=== PATIENT | female | born 1985 | race Caucasian/White ===

== ENCOUNTER → 2018-12-30 13:29 | Outpatient (CLI) | payer OTHER, SELFPAY ==
[2018-12-30 15:12] LABS: Amphetamine/Metha Screen,Urine Negative ng/mL (<1000); Barbiturates Screen,Urine Negative ng/mL (<200); Benzodiazepines Screen,Urine Negative ng/mL (<200); Cannabinoid Screen,Urine Negative ng/mL (<50); Cocaine Screen,Urine Negative ng/mL (<300); Methadone Screen,Urine Negative ng/mL (<300); Opiate Screen,Urine Negative ng/mL (<300); Phencyclidine Screen,Urine Negative ng/mL (<25)
== END ==
PROVIDERS: Visit Provider Physician Assistant
DX: Z79.899 Other long term (current) drug therapy (principal)
CPT/HCPCS: 80305

== ENCOUNTER → 2019-09-28 17:13 | Outpatient (CLI) | payer OTHER, SELFPAY ==
[2019-09-28 20:36] LABS: Amphetamine/Metha Screen,Urine Positive ng/mL (<1000); Barbiturates Screen,Urine Negative ng/mL (<200); Benzodiazepines Screen,Urine Negative ng/mL (<200); Cannabinoid Screen,Urine Positive ng/mL (<50); Cocaine Screen,Urine Negative ng/mL (<300); Methadone Screen,Urine Negative ng/mL (<300); Opiate Screen,Urine Negative ng/mL (<300); Phencyclidine Screen,Urine Negative ng/mL (<25)
== END ==
PROVIDERS: Visit Provider Nurse Practitioner Family
DX: F41.9 Anxiety disorder, unspecified (principal)
CPT/HCPCS: 80305

== ENCOUNTER 2020-01-13 14:14 | Emergency (ER) | payer OTHER, SELFPAY ==
[2020-01-13 14:22] VITALS: BP 140/92; PULSE 124; RESP 20; TEMP 36.4; O2SAT 98; BMI 38.4
--- NOTE | 2020-01-13 14:50 | HMH.EDUTC ---
[facility] [place] Clinical Impression: Cellulitis of right leg Sinusitis Qualifiers: Sinusitis location: unspecified location Chronicity: acute Recurrence: non-recurrent Qualified Code(s): J01.90 - Acute sinusitis, unspecified Disposition: Home, Self-Care Condition on Discharge: Good Instructions: Cellulitis, DI for Sinusitis Additional Instructions: Drink plenty of fluids. Take tylenol or ibuprofen for pain or fever. Take the medications as directed. Follow up with your regular doctor. GO TO THE ER FOR ANY WORSENING SYMPTOMS Apply warm wet compresses to the affected sites three or four times per day for 15 minutes as tolerated. Take the antibiotics as directed. Follow up with your regular doctor. GO TO THE ER FOR ANY WORSENING SYMPTOMS OR CONCERNS Prescriptions: Sulfamethoxazole/Trimethoprim [Bactrim DS tablet] 1 each PO BID 10 Days #20 tab Transmission Status: Received by [facility] Mupirocin [Bactroban 2% Ointment 22gm tube] 1 applicatio TP TID 7 Days #1 tube Transmission Status: Received by [facility] predniSONE [Deltasone 10mg tablet] 10 mg PO BID 3 Days #6 tab Transmission Status: Received by [facility] cephALEXin [Keflex 500mg Cap] 500 mg PO Q6H 10 Days #40 cap Transmission Status: Received by [facility] Referrals: Barry Galaviz MD [Primary Care Provider] - Time of Disposition: 14:56 Medical Decision Making - Medical Records Medical records reviewed: No: I reviewed the patient's medical records. - David Inquiry Pt receiving controlled substance: No Vital Signs: 01/13/20 14:22 01/13/20 15:12 Temperature 97.6 F 97.6 F Temperature Source Oral Pulse Rate 118 H Pulse Rate [Left Radial] 124 H Respiratory Rate 20 20 Blood Pressure 140/92 H Blood Pressure [Left Arm] 140/92 H Blood Pressure Mean [Left Arm] 108 Blood Pressure Source [Left Arm] Automatic Cuff Blood Pressure Position [Left Arm] Sitting 02 Sat by Pulse Oximetry 98 Oxygen Delivery Method Room Air [facility] [place] - General Stated complaint: sinus and cellulititis on right leg, no accident Time Seen by Provider: 01/13/20 14:50 Mode of Arrival: Ambulatory Source of Information: Patient Limitations: No Limitations Description of Symptoms (Recalled from Triage Doc. by RN): PT C/O CELLULITIS ON BACK OF HER RT LEG AND SINUS CONGESTION. HEENT Symptoms (Recalled from RN notes): Yes (SINUS INFECTION) Resp Symptoms (Recalled from RN notes): No Skin Symptoms (Recalled from RN notes): Yes (CELLULITIS OF LEG) MS Symptoms (Recalled from RN notes): No Functional Status (Recalled from RN notes): N/A - History of Present Illness Provider Complaint: She c/o having an area of cellulitis on the back of her left thigh and having sinus infection symptoms for the past 3 days. She has a history of getting abscesses and cellulitis on her legs and having to take antibiotics to get rid of it. She denies any fever or chills. - Related Data Home Medications Medication Instructions Recorded Confirmed Mupirocin [Bactroban 2% Ointment 1 applicatio TP TID 12/04/19 12/04/19 22gm tube] norgestimate-ethinyl estradioL See Rx Instructions .ROUTE .COMPLEX 12/04/19 12/04/19 [Tri-Previfem Tablet] Previous Rx's Medication Instructions Recorded valacyclovir 1 gram tablet 500 mg PO DAILY PRN #30 tab 02/01/19 citalopram 40 mg tablet 40 mg PO DAILY #90 tab 06/29/19 pantoprazole 40 mg tablet,delayed 40 mg PO DAILY 90 Days #90 tab 06/29/19 release clonazepam 1 mg tablet 1 mg PO BID 30 Days #60 tab 09/28/19 Ondansetron [Zofran 4mg ODT] 4 mg PO Q8HP PRN #20 tab.rapdis 11/26/19 Promethazine HCl [Phenergan 25mg 25 mg PO Q6H PRN #20 tab 11/26/19 tab] hydrOXYzine pamoate [Vistaril 25mg 25 mg PO Q6H PRN #30 cap 11/28/19 capsule] Doxycycline Hyclate [Doxycycline 100 mg PO BID 10 Days #20 cap 12/04/19 100mg Capsule] dexAMET
[2020-01-13 15:12] VITALS: BP 140/92; PULSE 118; RESP 20; TEMP 36.4; O2SAT 98
== END 2020-01-13 15:14 | disposition home or self-care (01) ==
PROVIDERS: Emergency Provider Nurse Practitioner Family; PCP Emergency Medicine
DX: L03.115 Cellulitis of right lower limb (principal); J01.90 Acute sinusitis, unspecified; F41.8 Other specified anxiety disorders; N28.9 Disorder of kidney and ureter, unspecified; Z79.899 Other long term (current) drug therapy
CPT/HCPCS: 99201

== ENCOUNTER 2020-03-15 19:19 | Emergency (ER) | payer OTHER, SELFPAY ==
[2020-03-15 19:38] VITALS: BP 120/70; PULSE 102; RESP 18; TEMP 36.6; O2SAT 97; BMI 38.7
[2020-03-15 19:48] VITALS: BP 120/70; PULSE 102; RESP 18; TEMP 36.6; O2SAT 97; BMI 33.3
--- NOTE | 2020-03-15 20:09 | HMH.EDUTC ---
[facility] [place] Disposition Clinical Impression: Sinusitis Qualifiers: Sinusitis location: unspecified location Chronicity: unspecified Qualified Code(s): J32.9 - Chronic sinusitis, unspecified Disposition: Home, Self-Care Condition on Discharge: Good Instructions: Sinusitis, Sinus Headache, DI for Sinusitis, Amoxicillin and Clavulanic Acid Additional Instructions: Start antibiotic. Sinus infections may take 2-3 days to notice much improvement so be sure to use conservative measures as discussed for symptoms Ok to continue Sudafed Flonase 2 spray in each nostril daily to help with nasal congestion, sinus an ear pressure/inflammation Lots of Fluids Sleep elevated Humidifer/vaporizer Augmentin can cause GI effects. Probiotics may help to prevent these symptoms Follow up with family doctor if no improvement or any worsening of symptoms *Monitor Temp, Over the counter Motrin or Tylenol as directed/as needed Tylenol every 4 hours and Motrin every 6 hours (as long as your family doctor has told you that you can take it) for fever or pain. and straight to ER if unable to lower temp less than 101.0 after medication given *Warm salt water gargles may help to soothe the throat *Throat Lozenges *Warm fluids like tea with honey may help to soothe the throat *Sleep elevated *Humidifier/Vaporizer Your throat swab was sent for culture. Those results are typically sent to your primary care. Be sure to follow up in 2-3 days with your family doctor/primary care physician if no improvement so they can review those result and treat if necessary. If you don?t have a primary care doctor, I recommend you get one but in the mean time, you will have to return to a walk in clinic Follow up IMMEDIATELY for new or worsening symptoms or no Noticeable improvement over the next 48-72 hours. 911 for difficulty breathing or swallowing Prescriptions: Amoxicillin/Potassium Clav [Augmentin 875-125 Tablet] 1 tab PO Q12H 7 Days #14 tab Transmission Status: Pending to [email or web address] Fluticasone Propionate [Flonase 50mcg nasal spray 16gm] 1 spr NS DAILY #1 bottle Transmission Status: Pending to [email or web address] Referrals: Barry Galaviz MD [Primary Care Provider] - As needed Time of Disposition: 20:24 Medical Decision Making - David Inquiry Pt receiving controlled substance: No David was queried for this patient: No Vital Signs: 03/15/20 19:38 03/15/20 19:48 Temperature 97.9 F 97.9 F Temperature Source Oral Oral Pulse Rate [Right Brachial] 102 H 102 H Respiratory Rate 18 18 Blood Pressure [Right Arm] 120/70 120/70 Blood Pressure Mean [Right Arm] 86 86 Blood Pressure Source [Right Arm] Automatic Cuff Automatic Cuff Blood Pressure Position [Right Arm] Sitting Sitting 02 Sat by Pulse Oximetry 97 97 Oxygen Delivery Method Room Air Room Air - Lab Data Lab results reviewed: Yes: I reviewed the patient's lab results. [facility] [place] HPI - General Stated complaint: swollen throat,, drainage Time Seen by Provider: 03/15/20 20:09 Mode of Arrival: Ambulatory Source of Information: Patient Limitations: No Limitations Description of Symptoms (Recalled from Triage Doc. by RN): throat swelling, drainage HEENT Symptoms (Recalled from RN notes): Yes Resp Symptoms (Recalled from RN notes): Yes Skin Symptoms (Recalled from RN notes): No MS Symptoms (Recalled from RN notes): No Functional Status (Recalled from RN notes): none - History of Present Illness Provider Complaint: Patient states that she has been having sore throat, sinus pain and pressure along with headache State that she feels like she may have strep or sinus infection States that she use to get sinus infections alot and feels like it did then States that she hasnt had a fever but feels like even her teeth are getting sore - Related Data Home Medications Medication Instructions Recorded Confirmed Mupirocin [Bactroban 2% Ointment 1 applicatio TP TID 12/04/19 12/04/19 22gm t
[2020-03-15 20:30] VITALS: BP 120/70; PULSE 102; RESP 18; TEMP 36.6; O2SAT 97
== END 2020-03-15 20:35 | disposition home or self-care (01) ==
LOC: ER 19:40 → UTC 19:41
PROVIDERS: Emergency Provider Nurse Practitioner; PCP Emergency Medicine
DX: J32.9 Chronic sinusitis, unspecified (principal); F41.8 Other specified anxiety disorders; N28.9 Disorder of kidney and ureter, unspecified; B00.9 Herpesviral infection, unspecified
CPT/HCPCS: 99201

== ENCOUNTER 2020-03-16 16:01 | Emergency (ER) | payer OTHER, SELFPAY ==
[2020-03-16 16:41] VITALS: BP 134/84; PULSE 81; RESP 20; TEMP 36.7; O2SAT 98; BMI 38.7
--- NOTE | 2020-03-16 16:46 | HMH.EDUTC ---
[facility] – [place] Disposition Clinical Impression: Encounter for laboratory testing for COVID-19 virus Disposition: Home, Self-Care Condition on Discharge: Good Instructions: Preventing the Spread of Coronavirus Discharge Instructions, Migraine -- Adult, DI for Headache Additional Instructions: You was given handout with instructions for COVID 19 make sure that you follow those instruction to help prevent the spread *Call back to the [facility] tomorrow or Friday to see if your test results are back and the result Over the counter Tylenol may help with headache and fever Return if needed Straight to ER if any life threatening symptoms Continue taking antibiotics as prescribed Referrals: PCP,No [Primary Care Provider] - Time of Disposition: 16:58 Medical Decision Making - David Inquiry Pt receiving controlled substance: No David was queried for this patient: No Vital Signs: 03/16/20 16:41 Temperature 98.0 F Temperature Source Oral Pulse Rate [Right Brachial] 81 Respiratory Rate 20 Blood Pressure [Right Arm] 134/84 Blood Pressure Mean [Right Arm] 100 Blood Pressure Source [Right Arm] Automatic Cuff Blood Pressure Position [Right Arm] Sitting 02 Sat by Pulse Oximetry 98 Oxygen Delivery Method Room Air Orders (Tests/Meds): ORDERS Category Date Time Status SARS-CoV-2, ROLAND Stat Lab 03/16/20 16:04 Ordered [facility] [place] HPI - General Stated complaint: covid symptoms Time Seen by Provider: 03/16/20 16:46 Mode of Arrival: Ambulatory Source of Information: Patient Limitations: No Limitations Description of Symptoms (Recalled from Triage Doc. by RN): PATIENT WAS TREATED LAST NIGHT FOR A SINUS INFECTION. RETURNS TO DAY C/O HEADACHE AND REQUESTING TO BE TESTED FOR COVID HEENT Symptoms (Recalled from RN notes): Yes Resp Symptoms (Recalled from RN notes): No Skin Symptoms (Recalled from RN notes): No MS Symptoms (Recalled from RN notes): No Functional Status (Recalled from RN notes): WNL - History of Present Illness Provider Complaint: Patient states that she was seen and treated last night in the [facility] for sinus infection States today she is still having some headache and requesting to get tested for COVID 19 due to having similar symptoms States that they told her she needed to be tested last night but she wouldn't so she came back today - Related Data Home Medications Medication Instructions Recorded Confirmed Mupirocin [Bactroban 2% Ointment 1 applicatio TP TID 12/04/19 12/04/19 22gm tube] norgestimate-ethinyl estradioL See Rx Instructions .ROUTE .COMPLEX 12/04/19 12/04/19 [Tri-Previfem Tablet] Previous Rx's Medication Instructions Recorded valacyclovir 1 gram tablet 500 mg PO DAILY PRN #30 tab 02/01/19 citalopram 40 mg tablet 40 mg PO DAILY #90 tab 06/29/19 pantoprazole 40 mg tablet,delayed 40 mg PO DAILY 90 Days #90 tab 06/29/19 release clonazepam 1 mg tablet 1 mg PO BID 30 Days #60 tab 09/28/19 Ondansetron [Zofran 4mg ODT] 4 mg PO Q8HP PRN #20 tab.rapdis 11/26/19 Promethazine HCl [Phenergan 25mg 25 mg PO Q6H PRN #20 tab 11/26/19 tab] hydrOXYzine pamoate [Vistaril 25mg 25 mg PO Q6H PRN #30 cap 11/28/19 capsule] Doxycycline Hyclate [Doxycycline 100 mg PO BID 10 Days #20 cap 12/04/19 100mg Capsule] dexAMETHasone [Decadron 4mg tablet] 4 mg OP BID 3 Days #6 tab 12/04/19 Mupirocin [Bactroban 2% Ointment 1 applicatio TP TID 7 Days #1 tube 01/13/20 22gm tube] Sulfamethoxazole/Trimethoprim 1 each PO BID 10 Days #20 tab 01/13/20 [Bactrim DS tablet] cephALEXin [Keflex 500mg Cap] 500 mg PO Q6H 10 Days #40 cap 01/13/20 predniSONE [Deltasone 10mg tablet] 10 mg PO BID 3 Days #6 tab 01/13/20 Amoxicillin/Potassium Clav 1 tab PO Q12H 7 Days #14 tab 03/15/20 [Augmentin 875-125 Tablet] Fluticasone Propionate [Flonase 1 spr NS DAILY #1 bottle 03/15/20 50mcg nasal spray 16gm] Allergies Allergy/AdvReac Type Severity Reaction Status Date / Time No Known Allergies Allergy Branden
[2020-03-16 16:58] VITALS: BP 134/84; PULSE 81; RESP 20; TEMP 36.7; O2SAT 98
[2020-03-18 12:55] LABS: Covid-19 Nasal PCR Sendout Lex Not Detected
== END 2020-03-16 17:01 | disposition home or self-care (01) ==
PROVIDERS: Emergency Provider Nurse Practitioner
DX: Z03.818 Encounter for observation for suspected exposure to other biological agents ruled out (principal); R51 Headache; F41.8 Other specified anxiety disorders; Z79.899 Other long term (current) drug therapy
CPT/HCPCS: 99201; U0004

== ENCOUNTER 2020-04-08 20:05 | Emergency (ER) | payer OTHER, SELFPAY ==
[2020-04-08 20:36] VITALS: BP 143/111; PULSE 96; RESP 12; TEMP 36.9; O2SAT 98; BMI 38.7
--- NOTE | 2020-04-08 20:51 | HMH.EDUTC ---
[facility] [place]: Abscess of tonsil Disposition: Home, Self-Care Condition on Discharge: Good Instructions: Sore Throat Additional Instructions: Start antibiotics today be sure to take it as ordered with the full length of time although you should start feeling better in 24-48 hours. Change toothbrush and toothpaste 24-48 hours after starting antibiotics Tylenol or Motrin as needed for fever or pain Encourage fluids, water, Gatorade, Powerade, try cold fluids, popsicles, ice cream will make it feel better You are contagious for 24 hours. Avoid kissing anyone, no eating or drinking after anyone. You are contagious. Follow-up the ER for new or worsening symptoms or no noticeable improvement over the next 24-48 hours. Follow-up with PCP this week. Prescriptions: Azithromycin [Zithromax 250mg tab] 250 mg PO DIRECTED #6 tab Prescription Printed Referrals: PCP,No [Primary Care Provider] - Time of Disposition: 21:00 Medical Decision Making - David Inquiry Pt receiving controlled substance: No Vital Signs: 04/08/20 20:36 Temperature 98.4 F Temperature Source Oral Pulse Rate [Radial] 96 H Respiratory Rate 12 Blood Pressure [Right Arm] 143/111 H Blood Pressure Mean [Right Arm] 121 Blood Pressure Source [Right Arm] Automatic Cuff Blood Pressure Position [Right Arm] Sitting 02 Sat by Pulse Oximetry 98 Oxygen Delivery Method Room Air [facility] [place] - General Chief complaint: [facility] Stated complaint: Poss abscess in throat Time Seen by Provider: 04/08/20 20:51 Mode of Arrival: Ambulatory Source of Information: Patient Limitations: No Limitations Description of Symptoms (Recalled from Triage Doc. by RN): left side of throat hurts, sinus headache. HEENT Symptoms (Recalled from RN notes): Yes Resp Symptoms (Recalled from RN notes): No Skin Symptoms (Recalled from RN notes): No MS Symptoms (Recalled from RN notes): No Functional Status (Recalled from RN notes): wnl - History of Present Illness Provider Complaint: 34 yr old female presents for sore throat and swollen lymp nodes on left. pt states she has hx of abcess and this feel like her normal abccess. - Related Data Home Medications Medication Instructions Recorded Confirmed Mupirocin [Bactroban 2% Ointment 1 applicatio TP TID 12/04/19 12/04/19 22gm tube] norgestimate-ethinyl estradioL See Rx Instructions .ROUTE .COMPLEX 12/04/19 12/04/19 [Tri-Previfem Tablet] Previous Rx's Medication Instructions Recorded valacyclovir 1 gram tablet 500 mg PO DAILY PRN #30 tab 02/01/19 citalopram 40 mg tablet 40 mg PO DAILY #90 tab 06/29/19 pantoprazole 40 mg tablet,delayed 40 mg PO DAILY 90 Days #90 tab 06/29/19 release clonazepam 1 mg tablet 1 mg PO BID 30 Days #60 tab 09/28/19 Ondansetron [Zofran 4mg ODT] 4 mg PO Q8HP PRN #20 tab.rapdis 11/26/19 Promethazine HCl [Phenergan 25mg 25 mg PO Q6H PRN #20 tab 11/26/19 tab] hydrOXYzine pamoate [Vistaril 25mg 25 mg PO Q6H PRN #30 cap 11/28/19 capsule] Doxycycline Hyclate [Doxycycline 100 mg PO BID 10 Days #20 cap 12/04/19 100mg Capsule] dexAMETHasone [Decadron 4mg tablet] 4 mg OP BID 3 Days #6 tab 12/04/19 Mupirocin [Bactroban 2% Ointment 1 applicatio TP TID 7 Days #1 tube 01/13/20 22gm tube] Sulfamethoxazole/Trimethoprim 1 each PO BID 10 Days #20 tab 01/13/20 [Bactrim DS tablet] cephALEXin [Keflex 500mg Cap] 500 mg PO Q6H 10 Days #40 cap 01/13/20 predniSONE [Deltasone 10mg tablet] 10 mg PO BID 3 Days #6 tab 01/13/20 Amoxicillin/Potassium Clav 1 tab PO Q12H 7 Days #14 tab 03/15/20 [Augmentin 875-125 Tablet] Fluticasone Propionate [Flonase 1 spr NS DAILY #1 bottle 03/15/20 50mcg nasal spray 16gm] Azithromycin [Zithromax 250mg 250 mg PO DIRECTED #6 tab 04/08/20 tab] Allergies Allergy/AdvReac Type Severity Reaction Status Date / Time No Known Allergies Allergy Verified 10/26/19 11:18 - Worker's Comp Is this
[2020-04-08 21:14] VITALS: BP 143/111; PULSE 96; RESP 12; TEMP 36.9; O2SAT 98
[2020-04-11 15:43] LABS: UTC Strep Screen (Rapid) Negative (Negative)
== END 2020-04-08 21:16 | disposition home or self-care (01) ==
PROVIDERS: Emergency Provider Nurse Practitioner Family
DX: J36 Peritonsillar abscess (principal); F41.8 Other specified anxiety disorders; N28.9 Disorder of kidney and ureter, unspecified; Z79.899 Other long term (current) drug therapy
CPT/HCPCS: 87880; 96372; 99201; 99202

== ENCOUNTER 2020-04-20 17:22 | Emergency (ER) | payer OTHER, SELFPAY ==
[2020-04-20 17:35] VITALS: BP 121/68; PULSE 102; RESP 17; TEMP 37; O2SAT 98; BMI 38.7
--- NOTE | 2020-04-20 18:04 | HMH.EDUTC ---
[facility] [place] Impression: Amen[place] Disposition: Home, Self-Care Condition on Discharge: Good Instructions: DI for Amenorrhea Additional Instructions: Follow up with your primary care physician. We will call you with the results of the your serum test. Referrals: PCP,No [Primary Care Provider] - Time of Disposition: 18:09 Medical Decision Making - Medical Records Medical records reviewed: No: I reviewed the patient's medical records. - David Inquiry Pt receiving controlled substance: No Vital Signs: 04/20/20 17:35 04/20/20 18:30 Temperature 98.6 F 98.6 F Temperature Source Oral Oral Pulse Rate 102 H Pulse Rate [Radial] 102 H Respiratory Rate 17 17 Blood Pressure 121/68 Blood Pressure [Right Arm] 121/68 Blood Pressure Mean [Right Arm] 85 Blood Pressure Source Automatic Cuff Blood Pressure Source [Right Arm] Automatic Cuff Blood Pressure Position Sitting Blood Pressure Position [Right Arm] Sitting 02 Sat by Pulse Oximetry 98 Oxygen Delivery Method Room Air Room Air - Lab Data Lab Results 04/20/20 17:40: [facility] Negative 04/20/20 17:50: Serum HCG, Qual Negative [facility] [place] - General Stated complaint: Wants to check for Time Seen by Provider: 04/20/20 17:40 Mode of Arrival: Ambulatory Source of Information: Patient Limitations: No Limitations Description of Symptoms (Recalled from Triage Doc. by RN): took two tests today and they were positive. Wants another test HEENT Symptoms (Recalled from RN notes): No Resp Symptoms (Recalled from RN notes): No Skin Symptoms (Recalled from RN notes): No MS Symptoms (Recalled from RN notes): No Functional Status (Recalled from RN notes): wnl - History of Present Illness Provider Complaint: She reports that her period is around 2 weeks late and she has had 2 positive urine test at home. She denies any vaginal bleeding, vaginal discharge, back pain or abdominal pian - Related Data Home Medications Medication Instructions Recorded Confirmed Mupirocin [Bactroban 2% Ointment 1 applicatio TP TID 12/04/19 12/04/19 22gm tube] norgestimate-ethinyl estradioL See Rx Instructions .ROUTE .COMPLEX 12/04/19 12/04/19 [Tri-Previfem Tablet] Previous Rx's Medication Instructions Recorded valacyclovir 1 gram tablet 500 mg PO DAILY PRN #30 tab 02/01/19 citalopram 40 mg tablet 40 mg PO DAILY #90 tab 06/29/19 pantoprazole 40 mg tablet,delayed 40 mg PO DAILY 90 Days #90 tab 06/29/19 release clonazepam 1 mg tablet 1 mg PO BID 30 Days #60 tab 09/28/19 Ondansetron [Zofran 4mg ODT] 4 mg PO Q8HP PRN #20 tab.rapdis 11/26/19 Promethazine HCl [Phenergan 25mg 25 mg PO Q6H PRN #20 tab 11/26/19 tab] hydrOXYzine pamoate [Vistaril 25mg 25 mg PO Q6H PRN #30 cap 11/28/19 capsule] Doxycycline Hyclate [Doxycycline 100 mg PO BID 10 Days #20 cap 12/04/19 100mg Capsule] dexAMETHasone [Decadron 4mg tablet] 4 mg OP BID 3 Days #6 tab 12/04/19 Mupirocin [Bactroban 2% Ointment 1 applicatio TP TID 7 Days #1 tube 01/13/20 22gm tube] Sulfamethoxazole/Trimethoprim 1 each PO BID 10 Days #20 tab 01/13/20 [Bactrim DS tablet] cephALEXin [Keflex 500mg Cap] 500 mg PO Q6H 10 Days #40 cap 01/13/20 predniSONE [Deltasone 10mg tablet] 10 mg PO BID 3 Days #6 tab 01/13/20 Amoxicillin/Potassium Clav 1 tab PO Q12H 7 Days #14 tab 03/15/20 [Augmentin 875-125 Tablet] Fluticasone Propionate [Flonase 1 spr NS DAILY #1 bottle 03/15/20 50mcg nasal spray 16gm] Azithromycin [Zithromax 250mg 250 mg PO DIRECTED #6 tab 04/08/20 tab] Allergies Allergy/AdvReac Type Severity Reaction Status Date / Time No Known Allergies Allergy Verified 10/26/19 11:18 - Worker's Comp Is this a Worker's Comp case?: No [facility] History - Hepatitis A Screen Drug use history?: No High risk sexual behaviors?: No History of sexually transmitted infection?: No Currently employed?: No [employer]
[2020-04-20 18:24] LABS: HCG Qualitative, Serum Negative (Negative)
[2020-04-20 18:30] VITALS: BP 121/68; PULSE 102; RESP 17; TEMP 37; O2SAT 98
[2020-04-20 19:24] LABS: UTC Pregnancy Test, Urine Negative (Negative)
== END 2020-04-20 18:31 | disposition home or self-care (01) ==
PROVIDERS: Emergency Provider Nurse Practitioner Family
DX: N91.2 Amenorrhea, unspecified (principal); F41.8 Other specified anxiety disorders; N28.9 Disorder of kidney and ureter, unspecified; B00.9 Herpesviral infection, unspecified; Z79.899 Other long term (current) drug therapy
CPT/HCPCS: 81025; 84703; 99202

== ENCOUNTER 2020-07-05 20:33 | Emergency (ER) | payer OTHER, SELFPAY ==
[2020-07-05 20:48] VITALS: BP 137/82; PULSE 79; RESP 19; TEMP 36.6; O2SAT 97; BMI 38.7
[2020-07-05 20:53] LABS: Apearance,Urine Clear (Clear); Bilirubin,Urine 1+ (Negative); Blood, Urine Trace (Negative); Color,Urine Red (Yellow); Glucose,Urine (UA) 250 (Negative); Ketones,Urine TRACE (Negative); Protein,Urine 1+ (Negative); Specific Gravity, Urine 1.005 (1.005-1.030); UTC Leukocyte Esterase,Urine 3+ (Negative); UTC Nitrate,Urine Positive (Negative); Urobilinogen,Urine >=8 EU/dl (0.2)
--- NOTE | 2020-07-05 20:55 | HMH.EDUTC ---
[facility] [place] Disposition Clinical Impression: UTI (urinary tract infection) Qualifiers: Urinary tract infection type: site unspecified Hematuria presence: with hematuria Qualified Code(s): N39.0 - Urinary tract infection, site not specified Disposition: Home, Self-Care Condition on Discharge: Good Instructions: Trimethoprim/Sulfamethoxazole (Alternative Therapy), Urinary Tract Infection, DI for Urinary Tract Infection (UTI) Additional Instructions: *Increase fluids. Water not Soda or Tea *Start antibiotic immediately and be sure to take as ordered for the FULL length of time although you should start to see improvement over the next 48 hours *Pyridium as needed Remember this medication will turn your urine Cass. This is normal but it will stain what ever it gets on *You should not use Pyridium for more than 48 hours. If so , follow up with your primary physician to review urine culture and ensure that antibiotic is adequate for infection *Be SURE to follow up anytime for new or worsening symptoms with your family doctor. AND in 48 hours for urine culture results with your family doctor, if you do not have a doctor then you may call back to the [facility] for urine culture results and further treatment. We do recommend that you choose and establish care with a Primary Care Physician. AND follow up with them in 10-14 days to repeat UA to ensure infection is resolved and blood no longer present *Be sure to let your PCP know that we sent urine cultures from the [facility] so they can follow up to ensure that you area the on the correct antibiotic Call your doctor office and make appointment for 48 hours (2 days from today) to follow up and get the results of your urine culture and further treatment Prescriptions: Sulfamethoxazole/Trimethoprim [Bactrim DS tablet] 1 each PO BID 10 Days #20 tab Transmission Status: Received by [facility] Phenazopyridine HCl [Pyridium 200mg Tablet] 200 pow PO TID #6 tab Transmission Status: Received by [facility] Referrals: PCP,No [Primary Care Provider] - As needed Time of Disposition: 21:09 Medical Decision Making - David Inquiry Pt receiving controlled substance: No David was queried for this patient: No Vital Signs: 07/05/20 20:48 07/05/20 21:01 Temperature 97.8 F 97.8 F Temperature Source Oral Oral Pulse Rate 79 Pulse Rate [Radial] 79 Respiratory Rate 19 19 Blood Pressure 137/82 Blood Pressure [Right Arm] 137/82 Blood Pressure Mean [Right Arm] 100 Blood Pressure Source Automatic Cuff Blood Pressure Source [Right Arm] Automatic Cuff Blood Pressure Position Sitting Blood Pressure Position [Right Arm] Sitting 02 Sat by Pulse Oximetry 97 Oxygen Delivery Method Room Air Room Air - Lab Data Lab results reviewed: Yes: I reviewed the patient's lab results. Lab Results 07/05/20 20:43: Urine Color Red, Urine Appearance Clear, Urine pH 5.0, Ur Specific [place] 1.005, Urine Protein 1+, Urine Glucose (UA) 250, Urine Ketones Trace, Urine Blood Trace, Urine Nitrate Positive A, Urine Bilirubin 1+ A, Urine Urobilinogen >=8, Ur Leukocyte Esterase 3+ A Orders (Tests/Meds): ED MEDICATIONS Discontinued Medications Generic Name Dose Route Start Last Admin Trade Name Freq PRN Reason Stop Dose Admin Ceftriaxone Sodium 1 gm 07/05/20 20:56 07/05/20 21:00 Ceftriaxone 1gm Vial IM 07/05/20 20:57 1 gm ONCE ONE Administration Protocol Lidocaine HCl 0 ml 07/05/20 20:56 07/05/20 21:01 Lidocaine 1% 5ml Pf Vial IM 07/05/20 20:57 2.1 ml ONCE ONE Administration Trimethoprim/Sulfamethoxazole 1 each 07/05/20 20:56 07/05/20 21:01 Sulfa/Trimethoprim 1 Tablet PO 07/05/20 20:57 1 each ONCE ONE Administration Protocol ORDERS Category Date Time Status Urine Culture Stat Micro 07/05/20 20:52 Ordered [facility] [place] HPI - General Stated complaint: possible UTI Time Seen by Provider: 07/05/20 20:55 Mode of Arrival: Ambulatory Gris
[2020-07-05 21:01] VITALS: BP 137/82; PULSE 79; RESP 19; TEMP 36.6; O2SAT 97
== END 2020-07-05 21:12 | disposition home or self-care (01) ==
PROVIDERS: Emergency Provider Nurse Practitioner
DX: N30.00 Acute cystitis without hematuria (principal); F41.8 Other specified anxiety disorders; N28.9 Disorder of kidney and ureter, unspecified
CPT/HCPCS: 81003; 87086; 87088; 87186; 96372; 99202

== ENCOUNTER 2020-07-08 16:43 | Emergency (ER) | payer OTHER, SELFPAY ==
[2020-07-08 16:45] VITALS: BP 125/77; PULSE 110; RESP 16; TEMP 36.9; O2SAT 98; BMI 84.6
[2020-07-08 17:24] LABS: Microscopic, Urine URINE MICROSCOPIC (MICROSCOPIC)
[2020-07-08 17:27] LABS: Appearance,Urine CLEAR (Clear); Bilirubin,Urine Negative (Negative); Blood, Urine TRACE-I (Negative); Color,Urine RED (Yellow); Glucose,Urine (UA) TRACE (Negative); Ketones,Urine Negative (Negative); Leukocyte Esterase,Urine TRACE (Negative); Nitrate,Urine POSITIVE (Negative); Protein,Urine 2+ (Negative); Specific Gravity, Urine 1.025 (1.005-1.030); Urobilinogen,Urine >=8.0 EU/dl (0.2)
[2020-07-08 17:38] LABS: Amorphous Sediment,Urine 1+ /lpf; Bacteria,Urine 1+ /lpf; RBC,Urine Occasional #/hpf (0-3)
[2020-07-08 17:45] LABS: Urine Pregnancy, HCG Qual. Negative (Negative)
[2020-07-08 17:54] LABS: Basophils % 0.4 % (0.1-2.0); Eosinophils # 0.1 K/mm3 (0.0-0.4); Eosinophils % 1.3 % (0.1-12.0); Hematocrit 42.6 % (37.0-47.0); Lymphocytes # 2.8 K/mm3 (0.7-4.5); Lymphocytes % 29.8 % (10-50); Mean Corpuscular HGB Conc 32.9 g/dL (31.8-35.4); Mean Corpuscular Hemoglobin 27.9 pg (27.0-31.2); Mean Corpuscular Volume 84.7 fl (81-99); Mean Platelet Volume 8.4 fl (7.4-10.4); Monocytes # 0.4 K/mm3 (0.1-1.0); Monocytes % 4.7 % (1.7-9.3); Neutrophils % 63.7 % (37.0-80.0); Platelet Count 352 K/mm3 (142-424); Red Blood Count 5.03 M/mm3 (4.20-5.40); Red Cell Distribution Width 13.2 % (11.5-17.5); White Blood Count 9.4 K/mm3 (4.8-10.8)
[2020-07-08 18:03] LABS: Alanine Aminotransferase 28 U/L (12-78); Albumin Level 4.1 g/dl (3.5-5.0); Albumin/Globulin Ratio 1.2 (1.1-1.8); Alkaline Phosphatase 82 U/L (38-126); Anion Gap 12.4 mEq/L (5-15); Aspartate Amino Transferase 34 U/L (14-36); Bilirubin,Total 0.4 mg/dl (0.2-1.3); Blood Urea Nitrogen 13 mg/dl (7-17); Calcium 9.8 mg/dl (8.4-10.2); Carbon Dioxide 30 mmol/L (22.0-30.0); Chloride 100 mmol/L (98-107); Creatinine Clearance Estimated 68 mL/min (50-200); Estimated Glomerular Filt Rate 57 ml/min (>60); GFR (African American) 69 ML/MIN (>60); Globulin 3.4 g/dL (1.3-3.2); Glucose 118 mg/dl (74-100); Potassium 4.4 mmoL/L (3.5-5.1); Sodium 138 mmol/L (136-145); Total Protein,Serum 7.5 g/dl (6.3-8.2)
--- NOTE | 2020-07-08 18:04 | PC.NURSE ---
entered pts room to administer medications as ordered per MAR, pt reports her IV feels like it is pinching her, IV flushed, good blood return flushed easily, pt denies pain with flushing IV. Pt requests IV be removed, pt reports she does not want to have another IV started states she doesn't think she needs IVFs or nausea medication.
--- NOTE | 2020-07-08 19:27 | HMH.EDGENADL ---
ED Disposition Clinical Impression: UTI (urinary tract infection) Qualifiers: Urinary tract infection type: acute cystitis Hematuria presence: without hematuria Qualified Code(s): N30.00 - Acute cystitis without hematuria Disposition: Home, Self-Care Condition on Discharge: Good Instructions: DI for Low Back Pain Prescriptions: Ondansetron [Zofran 4mg ODT] 4 mg PO Q6 PRN #9 tab.rapdis PRN Reason: Nausea Prescription Printed Referrals: PCP,No [Primary Care Provider] - - Critical Care Critical Care Time: No Attestation: On 07/08/20, the high probability of a clinically significant, sudden or life threatening deterioration of the following system(s) required my full and direct attention, intervention and personal management. The time I documented below is in addition to time spent performing reported procedures but includes the following listed in this critical care notation. Medical Decision Making - Medical Records Medical records reviewed: Yes: I reviewed the patient's medical records. - David Inquiry Pt receiving controlled substance: No Vital Signs: 07/08/20 16:45 Temperature 98.5 F Temperature Source Oral Pulse Rate [Radial] 110 H Respiratory Rate 16 Blood Pressure [Right Arm] 125/77 Blood Pressure Mean [Right Arm] 93 Blood Pressure Position [Right Arm] Sitting 02 Sat by Pulse Oximetry 98 Oxygen Delivery Method Room Air - Lab Data Lab results reviewed: Yes: I reviewed the patient's lab results. Lab Results 07/08/20 14:52: Urine HCG, Qual Negative 07/08/20 16:52: Urine Color Red, Urine Appearance Clear, Urine pH 5.0, Ur Specific [place] 1.025, Urine Protein 2+, Urine Glucose (UA) Trace, Urine Ketones Negative, Urine Blood Trace-i, Urine Nitrate Positive, Urine Bilirubin Negative, Urine Urobilinogen >=8.0, Ur Leukocyte Esterase Trace, Urine RBC Occasional, Urine WBC 3-5, Ur Squamous Epith Cells 3-5, Ur Transition Epith Cell 3-5, Amorphous Sediment 1+, Urine Bacteria 1+ 07/08/20 17:45: WBC 9.4, RBC 5.03, Hgb 14.0, Hct 42.6, MCV 84.7, MCH 27.9, MCHC 32.9, RDW 13.2, Plt Count 352, MPV 8.4, Neut % (Auto) 63.7, Lymph % (Auto) 29.8, [place] % (Auto) 4.7, Eos % (Auto) 1.3, Baso % (Auto) 0.4, Neut # (Auto) 6.0, Lymph # (Auto) 2.8, [place] # (Auto) 0.4, Eos # (Auto) 0.1, Baso # (Auto) 0.0 07/08/20 17:45: Sodium 138, Potassium 4.4, Chloride 100, Carbon Dioxide 30, Anion Gap 12.4, BUN 13, Creatinine 1.10 H, Estimated Creat Clear 68, Estimated GFR 57 L, Est GFR ( Amer) 69, Glucose 118 H, Calcium 9.8, Total Bilirubin 0.4, AST 34, ALT 28, Alkaline Phosphatase 82, Total Protein 7.5, Albumin 4.1, Globulin 3.4 H, Albumin/Globulin Ratio 1.2 Result diagrams: 07/08/20 17:45 07/08/20 17:45 Orders (Tests/Meds): ED MEDICATIONS Generic Name Dose Route Start Last Admin Trade Name Freq PRN Reason Stop Dose Admin Sodium Chloride 1,000 mls @ 999 mls/hr 07/08/20 17:45 07/08/20 18:03 Sod Chlor 0.9% 1000ml Bag IV 07/08/20 18:45 Not Given .Q1H1M RYLIE Discontinued Medications Generic Name Dose Route Start Last Admin Trade Name Freq PRN Reason Stop Dose Admin Ondansetron HCl 4 mg 07/08/20 17:35 07/08/20 18:03 Ondansetron 4mg/2ml Vial IV 07/08/20 17:36 Not Given ONCE ONE Medical Decision Narrative: 34-year-old female presenting with flank pain in the setting of known UTI. Differential includes pyelonephritis, kidney stone, dissection, musculoskeletal pain. Nontoxic, afebrile, hemodynamically stable. Initial and repeat abdominal exam negative for rebound/guarding/rigidity. No CVA tenderness. This is not an acute abdomen. No vomiting here. Her recent urine culture which showed sensitivity to her antibiotic so she will continue to take this and is tolerating it. She is asymptomatic after treatment here. She will follow-up with PCP. Her white count here is normal. General Adult HPI - General Chief complaint: Back Pain/Injury Stated complaint: Back Pain,Dizzy,FUNES,weaknes
[2020-07-08 19:45] VITALS: BP 122/79; PULSE 77; RESP 16; TEMP 37; O2SAT 100
== END 2020-07-08 19:47 | disposition home or self-care (01) ==
PROVIDERS: Emergency Provider Physician Assistant
DX: N30.00 Acute cystitis without hematuria (principal); F41.8 Other specified anxiety disorders; N28.9 Disorder of kidney and ureter, unspecified
CPT/HCPCS: 80053; 81001; 81025; 85025; 99282

== ENCOUNTER 2020-09-19 13:45 | Emergency (ER) | payer OTHER, SELFPAY ==
[2020-09-19 14:05] VITALS: BP 149/89; PULSE 85; RESP 19; TEMP 36.9; O2SAT 98; BMI 37.4
--- NOTE | 2020-09-19 14:27 | HMH.EDUTC ---
[facility] [place] Disposition Clinical Impression: Sinusitis Qualifiers: Sinusitis location: unspecified location Chronicity: unspecified Qualified Code(s): J32.9 - Chronic sinusitis, unspecified Disposition: Home, Self-Care Condition on Discharge: Good Instructions: Sinusitis, Sinus Headache, DI for Sinusitis, Doxycycline Additional Instructions: *Monitor Temp, Over the counter Motrin or Tylenol as directed/as needed Tylenol every 4 hours and Motrin every 6 hours (as long as your family doctor has told you that you can take it) for fever or pain. and straight to ER if unable to lower temp less than 101.0 after medication given *Warm salt water gargles may help to soothe the throat *Throat Lozenges *Warm fluids like tea with honey may help to soothe the throat *Sleep elevated *Humidifier/Vaporizer Follow up IMMEDIATELY for new or worsening symptoms or no Noticeable improvement over the next 48-72 hours. 911 for difficulty breathing or swallowing Prescriptions: Doxycycline Monohydrate [Doxycycline [place] 100mg Tab] 100 mg PO BID 10 Days #20 tab Transmission Status: Pending to [facility] Fluticasone Propionate [Flonase 50mcg nasal spray 16gm] 1 spr NS DAILY #1 bottle Transmission Status: Pending to [facility] Referrals: PCPLeola [Primary Care Provider] - As needed Time of Disposition: 14:34 Medical Decision Making - David Inquiry Pt receiving controlled substance: No David was queried for this patient: No Vital Signs: 09/19/20 14:05 Temperature 98.4 F Temperature Source Oral Pulse Rate [Right Brachial] 85 Respiratory Rate 19 Blood Pressure [Right Arm] 149/89 H Blood Pressure Mean [Right Arm] 109 Blood Pressure Source [Right Arm] Automatic Cuff Blood Pressure Position [Right Arm] Sitting 02 Sat by Pulse Oximetry 98 Oxygen Delivery Method Room Air [facility] [place] HPI - General Stated complaint: headache Time Seen by Provider: 09/19/20 14:27 Mode of Arrival: Ambulatory Source of Information: Patient Limitations: No Limitations Description of Symptoms (Recalled from Triage Doc. by RN): PATIENT C/O HEADACHE AND SPOT ON FOREHEAD X 1 WEEK HEENT Symptoms (Recalled from RN notes): No Resp Symptoms (Recalled from RN notes): No Skin Symptoms (Recalled from RN notes): No MS Symptoms (Recalled from RN notes): No Functional Status (Recalled from RN notes): WNL - History of Present Illness Provider Complaint: Patient states that she has been having sinus headache and tender sore spot in her forehead/sinuses above her right eye that is sore to the touch State that she freqently gets sinus infections and thinks she has one now States that she is blowing out yellowish green mucous from her nose - Related Data Home Medications Medication Instructions Recorded Confirmed Mupirocin [Bactroban 2% Ointment 1 applicatio TP TID 12/04/19 12/04/19 22gm tube] norgestimate-ethinyl estradioL See Rx Instructions .ROUTE .COMPLEX 12/04/19 12/04/19 [Tri-Previfem Tablet] Previous Rx's Medication Instructions Recorded valacyclovir 1 gram tablet 500 mg PO DAILY PRN #30 tab 02/01/19 citalopram 40 mg tablet 40 mg PO DAILY #90 tab 06/29/19 pantoprazole 40 mg tablet,delayed 40 mg PO DAILY 90 Days #90 tab 06/29/19 release clonazepam 1 mg tablet 1 mg PO BID 30 Days #60 tab 09/28/19 Ondansetron [Zofran 4mg ODT] 4 mg PO Q8HP PRN #20 tab.rapdis 11/26/19 Promethazine HCl [Phenergan 25mg 25 mg PO Q6H PRN #20 tab 11/26/19 tab] hydrOXYzine pamoate [Vistaril 25mg 25 mg PO Q6H PRN #30 cap 11/28/19 capsule] Doxycycline Hyclate [Doxycycline 100 mg PO BID 10 Days #20 cap 12/04/19 100mg Capsule] dexAMETHasone [Decadron 4mg tablet] 4 mg OP BID 3 Days #6 tab 12/04/19 Mupirocin [Bactroban 2% Ointment 1 applicatio TP TID 7 Days #1 tube 01/13/20 22gm tube] Sulfamethoxazole/Trimethoprim 1 each PO BID 10 Days #20 tab 01/13/20 [Bactrim DS tablet] cephALEXin [Keflex 500mg Cap] 500 mg
[2020-09-19 14:34] VITALS: BP 149/89; PULSE 85; RESP 19; TEMP 36.9; O2SAT 98
== END 2020-09-19 14:40 | disposition home or self-care (01) ==
PROVIDERS: Emergency Provider Nurse Practitioner
DX: J32.9 Chronic sinusitis, unspecified (principal); F41.8 Other specified anxiety disorders; N28.9 Disorder of kidney and ureter, unspecified; Z79.899 Other long term (current) drug therapy
CPT/HCPCS: 99202; G0463

== ENCOUNTER 2020-10-08 17:31 | Emergency (ER) | payer OTHER, SELFPAY ==
[2020-10-08 17:40] VITALS: BP 118/61; PULSE 107; RESP 20; TEMP 36.8; O2SAT 100; BMI 38.7
--- NOTE | 2020-10-08 18:10 | HMH.EDUTC ---
[facility] [place] Clinical Impression: Bronchitis, Absent periods Disposition: Home, Self-Care Condition on Discharge: Good Instructions: In-Home Tests: Your Questions Answered, Acute Bronchitis Additional Instructions: list given for pcp taking new pts dr sullivan - allergy/asthma if symptoms worsen or do not improve return or be seen in ed Prescriptions: Albuterol Sulfate [Albuterol Sulfate Hfa] 6.7 gm IH Q6 PRN 30 Days #1 [email or web address] PRN Reason: Dyspnea Transmission Status: Pending to [facility] Referrals: PCP,No [Primary Care Provider] - Time of Disposition: 18:15 Medical Decision Making - David Inquiry Pt receiving controlled substance: No [facility] - General Chief complaint: [facility] Stated complaint: Shortness of breath Time Seen by Provider: 10/08/20 18:10 Mode of Arrival: Ambulatory Source of Information: Patient Limitations: No Limitations - History of Present Illness Provider Complaint: 35 yr old female presnets for pregnacy test, she is 2 days late and soa. pt states she has hx of anxiety and when she feels soa in the past she has had a inhaler and this helps with her breathing. pt not sure hx of asthma but states she has chronic bronchitis and sinusitits. - Related Data Home Medications Medication Instructions Recorded Confirmed Pantoprazole Sodium See Rx Instructions .ROUTE .COMPLEX 10/08/20 10/08/20 Previous Rx's Medication Instructions Recorded Albuterol Sulfate [Albuterol 6.7 gm IH Q6 PRN 30 Days #1 10/08/20 Sulfate Hfa] hfa.aer.ad Allergies Allergy/AdvReac Type Severity Reaction Status Date / Time No Known Allergies Allergy Verified 10/26/19 11:[address] [facility] History - Hepatitis A Screen Attestation statement:: This patient has been screened for Hepatitis A risk factors. I have reviewed the patient's past medical history: Yes Medical History: Reports:: Anxiety, Depression, Renal Disease, Renal Insufficiency Denies:: Cancer, Diabetes Mellitus Type 1, Diabetes Mellitus Type 2, Internal Pacemaker, MRSA Comment: Gential Herpes Other Surgeries: Yes: , Dilation and Curettage, Other. No: Pacemaker Amputation: No Fractures: No Comment: [place] teeth removal. Left side staff infection surgery - Social History Smoking Status: Never smoker Alcohol Intake: never Substance Use Type: denies use Occupational Status: other Housing: house - Psychiatric History Pschychiatric History:: Reports:: Anxiety, Depression Family Hx:: Cancer, Stroke, Heart Attack, Diabetes, Hypertension ROS Obtained: Yes Systems reviewed as appropriate & no additional complaints - Constitutional Constitutional: Reports system reviewed and no additional complaints, except as docu, Denies chills, Denies fever(s) - Eyes Eyes: Reports system reviewed and no additional complaints, except as docu, Denies blurry vision - ENT Ears, Nose, Mouth, and Throat: Reports system reviewed and no additional complaints, except as docu, Denies sore throat - Cardiovascular Cardiovascular: Reports system reviewed and no additional complaints, except as docu, Denies chest pain at rest, Denies dyspnea on exertion - Respiratory Respiratory: Reports system reviewed and no additional complaints, except as docu, Reports shortness of breath, Denies change in phlegm color, Denies chest congestion, Denies cough, Denies non-productive cough, Denies dyspnea, Denies dyspnea on exertion, Denies excessive phlegm production, Denies coughing up blood, Denies pain on inspiration, Denies pain with cough, Denies cough with sputum production, Denies pain with breathing, Denies wheezing - Gastrointestinal Gastrointestingal: Reports: system reviewed and no additional complaints, except as docu. Denies: nausea, vomiting - Genitourinary Female Genitourinary: Reports system reviewed and no additional complaints, except as docu, Reports absent period - Musculoskeletal Musculoskeletal: Report
[2020-10-08 18:18] VITALS: BP 118/61; PULSE 107; RESP 20; TEMP 36.8; O2SAT 100
[2020-10-08 18:30] LABS: UTC Pregnancy Test, Urine Negative (Negative)
== END 2020-10-08 18:20 | disposition home or self-care (01) ==
PROVIDERS: Emergency Provider Nurse Practitioner Family
DX: J20.9 Acute bronchitis, unspecified (principal); Z32.02 Encounter for pregnancy test, result negative; F41.8 Other specified anxiety disorders
CPT/HCPCS: 81025; 99202; G0463

== ENCOUNTER 2020-11-03 20:52 | Emergency (ER) | payer OTHER, SELFPAY ==
[2020-11-03 21:00] VITALS: BP 128/78; PULSE 97; RESP 21; TEMP 36.9; O2SAT 99; BMI 38.4
--- NOTE | 2020-11-03 21:14 | HMH.EDUTC ---
[facility] [place] Disposition Clinical Impression: Exposure to COVID-19 virus, Wheezing Disposition: Home, Self-Care Condition on Discharge: Good Instructions: Preventing the Spread of Coronavirus Discharge Instructions Prescriptions: predniSONE [Prednisone 20mg Tab] 20 mg PO BID 5 Days #10 tab Transmission Status: Pending to [facility] Albuterol Sulfate [Proventil-HFA 90mcg/puff Inh] 2 puffs IH QIDP PRN 30 Days #1 inh PRN Reason: Wheezing Transmission Status: Pending to [facility] Referrals: PCP,No [Primary Care Provider] - Time of Disposition: 21:16 Medical Decision Making - David Inquiry Pt receiving controlled substance: No Vital Signs: 11/03/20 21:00 Temperature 98.4 F Temperature Source Oral Pulse Rate [Right Brachial] 97 H Respiratory Rate 21 Blood Pressure [Right Arm] 128/78 Blood Pressure Mean [Right Arm] 94 Blood Pressure Source [Right Arm] Automatic Cuff Blood Pressure Position [Right Arm] Sitting 02 Sat by Pulse Oximetry 99 Oxygen Delivery Method Room Air Orders (Tests/Meds): ORDERS Category Date Time Status Covid-19 Nasal PCR ([facility]) Routine Lab 11/03/20 20:58 Received [facility] [place] HPI - General Stated complaint: covid test Time Seen by Provider: 11/03/20 21:14 Mode of Arrival: Ambulatory Source of Information: Patient Limitations: No Limitations Description of Symptoms (Recalled from Triage Doc. by RN): COVID TEST D/T EXPOSURE. DENIES SYMPTOMS HEENT Symptoms (Recalled from RN notes): No Resp Symptoms (Recalled from RN notes): No Skin Symptoms (Recalled from RN notes): No MS Symptoms (Recalled from RN notes): No Functional Status (Recalled from RN notes): WNL - History of Present Illness Provider Complaint: Patient was exposed to COVID19 a few days ago. She does complain of some shortness of air, though she states that has been going on for a while. No fever. Onset (ago): day(s) (3) Relieving factors: none Exacerbating factors: none Associated symptoms: shortness of breath Treatments prior to arrival: none - Related Data Home Medications Medication Instructions Recorded Confirmed Pantoprazole Sodium See Rx Instructions .ROUTE .COMPLEX 10/08/20 10/08/20 Previous Rx's Medication Instructions Recorded Albuterol Sulfate [Albuterol 6.7 gm IH Q6 PRN 30 Days #1 10/08/20 Sulfate Hfa] hfa.aer.ad Albuterol Sulfate [Proventil-HFA 2 puffs IH QIDP PRN 30 Days #1 inh 11/03/20 90mcg/puff Inh] predniSONE [Prednisone 20mg 20 mg PO BID 5 Days #10 tab 11/03/20 Tab] Allergies Allergy/AdvReac Type Severity Reaction Status Date / Time No Known Allergies Allergy Verified 10/26/19 11:18 - Worker's Comp Is this a Worker's Comp case?: No [facility] History - Hepatitis A Screen Drug use history?: No High risk sexual behaviors?: No History of sexually transmitted infection?: No Currently employed?: No Childcare worker?: No Do you have indoor plumbing?: Yes Do you have electricity?: Yes Attestation statement:: This patient has been screened for Hepatitis A risk factors. I have reviewed the patient's past medical history: Yes Medical History: Reports:: Anxiety, Depression, Renal Disease, Renal Insufficiency Denies:: Cancer, Diabetes Mellitus Type 1, Diabetes Mellitus Type 2, Internal Pacemaker, MRSA Comment: Gential Herpes Other Surgeries: Yes: , Dilation and Curettage, Other. No: Pacemaker Amputation: No Fractures: No Comment: [place] teeth removal. Left side staff infection surgery - Social History Smoking Status: Never smoker Alcohol Intake: never Substance Use Type: denies use Occupational Status: other Housing: house - Psychiatric History Pschychiatric History:: Reports:: Anxiety, Depression Family Hx:: Cancer, Stroke, Heart Attack, Diabetes, Hypertension ROS Obtained: Yes All systems reviewed & no additional complaints - Respiratory Respiratory: Reports dyspnea Physical Exam - General Gener
[2020-11-03 21:19] VITALS: BP 128/78; PULSE 97; RESP 21; TEMP 36.9; O2SAT 99
== END 2020-11-03 21:23 | disposition home or self-care (01) ==
PROVIDERS: Emergency Provider Physician Assistant
DX: Z20.822 Contact with and (suspected) exposure to COVID-19 (principal); R06.2 Wheezing; F41.8 Other specified anxiety disorders; N28.9 Disorder of kidney and ureter, unspecified; Z79.899 Other long term (current) drug therapy
CPT/HCPCS: 99202; G0463; U0003

== ENCOUNTER 2020-12-16 09:34 | Emergency (ER) | payer OTHER, SELFPAY ==
[2020-12-16] VITALS (7 sets, daily range): BP systolic 108–148; BP diastolic 61–84; PULSE 79–112; RESP 18–19; TEMP 36.8; O2SAT 99–100; BMI 37.1
--- NOTE | 2020-12-16 09:41 | XR_ITS ---
PROCEDURE: XR CHEST 2V CLINICAL HISTORY: chest pain COMPARISON: CR XR CHEST 2V from 05/04/2019 CR XR CHEST 2V from 11/28/2019 CR XR CHEST PORTABLE from 12/04/2019 FINDINGS: The cardiomediastinal silhouette and pulmonary vascularity are within normal limits. The lungs are clear without infiltrates, suspicious nodules, or pleural effusions. No acute bony abnormalities. IMPRESSION: No acute findings. Dictated by: Andrew Ruelas MD 12/16/2020 11:04 Andrew Ruelas MD in [place] 12/16/2020 11:04
--- NOTE | 2020-12-16 09:43 | HMH.EDGENADL ---
ED Disposition Clinical Impression: Atypical chest pain Dyspnea Qualifiers: Dyspnea type: unspecified Qualified Code(s): R06.00 - Dyspnea, unspecified Disposition: Home, Self-Care Condition on Discharge: Fair Additional Instructions: You have been evaluated for shortness of breath. This could be due to asthma, pneumonitis. Please use your inhalers as needed. Follow-up with your primary care doctor in 1 to 2 days. Return to the emergency department for any new or worsening symptoms. Referrals: PCP,No [Primary Care Provider] - Time of Disposition: 12:18 - Critical Care Critical Care Time: No Attestation: On , the high probability of a clinically significant, sudden or life threatening deterioration of the following system(s) required my full and direct attention, intervention and personal management. The time I documented below is in addition to time spent performing reported procedures but includes the following listed in this critical care notation. Medical Decision Making - Medical Records Medical records reviewed: Yes: I reviewed the patient's medical records. - David Inquiry Pt receiving controlled substance: No Vital Signs: 12/16/20 09:35 12/16/20 10:31 12/16/20 10:51 Temperature 98.2 F Temperature Source Oral Pulse Rate 101 H 112 H Pulse Rate [Left Radial] 92 H Respiratory Rate 18 Blood Pressure 125/77 125/77 Blood Pressure [Right Arm] 148/84 H Blood Pressure Mean 93 Blood Pressure Mean [Right Arm] 105 Blood Pressure Source Blood Pressure Source [Right Arm] Automatic Cuff Blood Pressure Position Blood Pressure Position [Right Arm] Sitting 02 Sat by Pulse Oximetry 100 100 99 Oxygen Delivery Method Room Air 12/16/20 11:30 12/16/20 12:30 12/16/20 13:30 Temperature Temperature Source Pulse Rate 90 79 85 Pulse Rate [Left Radial] Respiratory Rate Blood Pressure 108/61 L Blood Pressure [Right Arm] Blood Pressure Mean 77 Blood Pressure Mean [Right Arm] Blood Pressure Source Blood Pressure Source [Right Arm] Blood Pressure Position Blood Pressure Position [Right Arm] 02 Sat by Pulse Oximetry 100 100 100 Oxygen Delivery Method 12/16/20 13:34 Temperature 98.2 F Temperature Source Oral Pulse Rate 95 H Pulse Rate [Left Radial] Respiratory Rate 19 Blood Pressure 108/61 L Blood Pressure [Right Arm] Blood Pressure Mean Blood Pressure Mean [Right Arm] Blood Pressure Source Automatic Cuff Blood Pressure Source [Right Arm] Blood Pressure Position Sitting Blood Pressure Position [Right Arm] 02 Sat by Pulse Oximetry Oxygen Delivery Method Room Air - Lab Data Lab Results 12/16/20 09:41: Urine Color Yellow, Urine Appearance Clear, Urine pH 6.5, Ur Specific [place] 1.010, Urine Protein Negative, Urine Glucose (UA) Negative, Urine Ketones Negative, Urine Blood 3+, Urine Nitrate Negative, Urine Bilirubin Negative, Urine Urobilinogen 0.2, Ur Leukocyte Esterase Negative, Urine RBC None, Urine WBC 3-5, Ur Squamous Epith Cells 3-5, Urine Bacteria None 12/16/20 09:52: WBC 10.7, RBC 5.12, Hgb 14.0, Hct 43.2, MCV 84.4, MCH 27.3, MCHC 32.4, RDW 13.0, Plt Count 364, MPV 7.8, Neut % (Auto) 58.7, Lymph % (Auto) 35.3, [place] % (Auto) 3.8, Eos % (Auto) 1.4, Baso % (Auto) 0.7, Neut # (Auto) 6.3, Lymph # (Auto) 3.8, [place] # (Auto) 0.4, Eos # (Auto) 0.2, Baso # (Auto) 0.1 12/16/20 09:52: Sodium 137, Potassium 4.3, Chloride 102, Carbon Dioxide 28, Anion Gap 11.3, BUN 13, Creatinine 0.80, Estimated Creat Clear 163, Estimated GFR 82, Est GFR ( Amer) 99, Glucose 119 H, Calcium 9.6, Total Bilirubin 0.2, AST 24, ALT 24, Alkaline Phosphatase 94, Troponin I < 0.01, Total Protein 7.8, Albumin 4.4, Globulin 3.4 H, Albumin/Globulin Ratio 1.3 12/16/20 09:52: D-Dimer 0.56 H 12/16/20 10:53: Urine HCG, Qual Negative 12/16/20 12:21: Troponin I < 0.01 Result diagrams: 12/16/20 09:52 12/16/20 09:52 Orders (Tests/Meds): ED MEDICATIONS Discont
--- NOTE | 2020-12-16 09:44 | ECG_ITS ---
APPROVED REPORT Exam: Resting ECG HR:93 bpm ECG Measurements Heart Rate 93 AXES MO 132 P 40 QRSd 76 QRS 30 QT 362 T 28 QTc 450 Conclusion Normal sinus rhythm Normal ECG Electronically signed by : Adin Coleman, 12/17/2020 07:25:43
[2020-12-16 10:06] LABS: Basophils # 0.1 K/mm3 (0-0.2); Basophils % 0.7 % (0.1-2.0); Eosinophils # 0.2 K/mm3 (0.0-0.4); Eosinophils % 1.4 % (0.1-12.0); Hematocrit 43.2 % (37.0-47.0); Lymphocytes # 3.8 K/mm3 (0.7-4.5); Lymphocytes % 35.3 % (10-50); Mean Corpuscular HGB Conc 32.4 g/dL (31.8-35.4); Mean Corpuscular Hemoglobin 27.3 pg (27.0-31.2); Mean Corpuscular Volume 84.4 fl (81-99); Mean Platelet Volume 7.8 fl (7.4-10.4); Monocytes # 0.4 K/mm3 (0.1-1.0); Monocytes % 3.8 % (1.7-9.3); Neutrophils # 6.3 K/mm3 (1.8-7.8); Neutrophils % 58.7 % (37.0-80.0); Platelet Count 364 K/mm3 (142-424); Red Blood Count 5.12 M/mm3 (4.20-5.40); White Blood Count 10.7 K/mm3 (4.8-10.8)
[2020-12-16 10:08] LABS: Chloride 102 mmol/L (98-107); Sodium 137 mmol/L (136-145)
[2020-12-16 10:09] LABS: Potassium 4.3 mmoL/L (3.5-5.1)
[2020-12-16 10:11] LABS: Alanine Aminotransferase 24 U/L (12-78); Albumin Level 4.4 g/dl (3.5-5.0); Albumin/Globulin Ratio 1.3 (1.1-1.8); Alkaline Phosphatase 94 U/L (38-126); Anion Gap 11.3 mEq/L (5-15); Aspartate Amino Transferase 24 U/L (14-36); Bilirubin,Total 0.2 mg/dl (0.2-1.3); Blood Urea Nitrogen 13 mg/dl (7-17); Carbon Dioxide 28 mmol/L (22.0-30.0); Creatinine Clearance Estimated 163 mL/min (50-200); Estimated Glomerular Filt Rate 82 ml/min (>60); GFR (African American) 99 ML/MIN (>60); Globulin 3.4 g/dL (1.3-3.2); Total Protein,Serum 7.8 g/dl (6.3-8.2)
[2020-12-16 10:12] LABS: Calcium 9.6 mg/dl (8.4-10.2); Glucose 119 mg/dl (74-100)
[2020-12-16 10:17] LABS: D-Dimer 0.56 ug/mL (0.0-0.5)
[2020-12-16 10:45] LABS: Troponin I < 0.01 ng/ml (0.00-0.034)
--- NOTE | 2020-12-16 10:51 | CT_ITS ---
PROCEDURE: CT ANGIO CHEST CLINCIAL INDICATION: elevated d-dime Chest pain with elevated D-dimer COMPARISON: No exams were available for comparison TECHNIQUE: IV Contrast: 70ML Isovue 370 Axial images obtained with sagittal and coronal reformats. All CT scans at the facility use one or more dose reduction, viz: automated exposure control, ma/kV adjustment per patient size (including targeted exams where dose is matched to indication, i.e. head), or iterative reconstruction technique. FINDINGS: HEART AND MEDIASTINAL STRUCTURES: Unremarkable. LUNGS AND PLEURAL SPACES: Unremarkable. BONY STRUCTURES: No acute bony abnormalities apparent. UPPER ABDOMEN: Unremarkable. ADDITIONAL FINDINGS: No other significant abnormalities.No evidence of pulmonary embolus, aortic aneurysm, or aortic dissection.. No mediastinal or mass or adenopathy. Normal heart size. 4 mm nodule noted in the region of the right minor fissure possibly due to small lymph node. No areas of consolidation or effusion. No acute bony findings. IMPRESSION: No acute finding. No evidence of pulmonary embolus. Dictated by: Andrew Ruelas MD 12/16/2020 12:03 Andrew Ruelas MD in [place] 12/16/2020 12:03
[2020-12-16 10:59] LABS: Microscopic, Urine URINE MICROSCOPIC (MICROSCOPIC)
[2020-12-16 11:01] LABS: Appearance,Urine CLEAR (Clear); Bilirubin,Urine Negative (Negative); Blood, Urine 3+ (Negative); Color,Urine YELLOW (Yellow); Glucose,Urine (UA) Negative (Negative); Ketones,Urine Negative (Negative); Leukocyte Esterase,Urine Negative (Negative); Nitrate,Urine Negative (Negative); PH,Urine 6.5 (5.0-8.5); Protein,Urine Negative (Negative); Urobilinogen,Urine 0.2 EU/dl (0.2)
[2020-12-16 11:02] LABS: Urine Pregnancy, HCG Qual. Negative (Negative)
[2020-12-16 12:52] LABS: Troponin I < 0.01 ng/ml (0.00-0.034)
== END 2020-12-16 13:35 | disposition home or self-care (01) ==
PROVIDERS: Emergency Provider Emergency Medicine
DX: R07.89 Other chest pain (principal); R06.00 Dyspnea, unspecified; F41.8 Other specified anxiety disorders; N28.9 Disorder of kidney and ureter, unspecified; Z79.899 Other long term (current) drug therapy
CPT/HCPCS: 71046; 71275; 80053; 81001; 81025; 84484; 85025; 85378; 93005; 99283; Q9967

== ENCOUNTER → 2021-02-16 13:20 | Outpatient (CLI) | payer OTHER, SELFPAY ==
[2021-02-16 15:34] LABS: Free Thyroxine Index 2.6 ug/dL (5.93-13.13); T4 (Thyroxine) 9.1 ug/dl (5.53-11.0); Triiodothryronine (T3) Uptake 29 % (23.5-40.5)
[2021-02-16 15:48] LABS: Thyroid Stimulating Hormone 1.26 uIU/mL (0.465-4.68)
== END ==
PROVIDERS: Visit Provider Internal Medicine Adolescent Medicine
DX: R03.0 Elevated blood-pressure reading, without diagnosis of hypertension (principal)
CPT/HCPCS: 36415; 84436; 84443; 84479

== ENCOUNTER → 2021-04-13 14:04 | Outpatient (CLI) | payer OTHER, SELFPAY | PROVIDERS: Visit Provider Internal Medicine Adolescent Medicine | DX: R35.0 Frequency of micturition (principal) | CPT/HCPCS: 87086; 87088; 87186 ==

== ENCOUNTER 2024-06-01 16:00 | Outpatient (CLI) | payer OTHER, SELFPAY ==
--- NOTE | 2024-06-01 16:08 | XR_ITS ---
FINAL REPORT TECHNIQUE: Chest PA & Lateral CLINICAL HISTORY: ACUTE BRONCHITIS left sided cp COMPARISON: 12/16/2020 FINDINGS: 2 views of the chest were performed. The heart size is normal. The mediastinum is within normal limits. There is no acute cardiopulmonary process. There are no pleural effusions. There is no pneumothorax. The bony thorax appears intact. IMPRESSION: No acute cardiopulmonary process. Reviewed, Interpreted and Dictated by Antoni Mcclendon MD Transcribed by Cuca Grullon Authenticated and [facility]
[2024-06-01 16:47] LABS: Basophils # 0.1 K/mm3 (0-0.2); Basophils % 0.8 % (0.1-2.0); Eosinophils # 0.1 K/mm3 (0.0-0.4); Eosinophils % 1.3 % (0.1-12.0); Hematocrit 41.1 % (37.0-47.0); Lymphocytes # 3.2 K/mm3 (0.7-4.5); Lymphocytes % 29.6 % (10-50); Mean Corpuscular HGB Conc 31.5 g/dL (31.8-35.4); Mean Corpuscular Hemoglobin 27.6 pg (27.0-31.2); Mean Corpuscular Volume 87.5 fl (81-99); Mean Platelet Volume 8.2 fl (7.4-10.4); Monocytes # 0.7 K/mm3 (0.1-1.0); Monocytes % 6.4 % (1.7-9.3); Neutrophils # 6.6 K/mm3 (1.8-7.8); Neutrophils % 61.9 % (37.0-80.0); Platelet Count 358 K/mm3 (142-424); Red Cell Distribution Width 15.2 % (11.5-17.5); White Blood Count 10.7 K/mm3 (4.8-10.8)
[2024-06-01 17:05] LABS: Alanine Aminotransferase 24 U/L (12-78); Albumin Level 4.2 g/dl (3.5-5.0); Albumin/Globulin Ratio 1.3 (1.1-1.8); Alkaline Phosphatase 76 U/L (38-126); Anion Gap 7.1 mEq/L (5-15); Aspartate Amino Transferase 26 U/L (14-36); Bilirubin,Total 0.5 mg/dl (0.2-1.3); Blood Urea Nitrogen 17 mg/dl (7-17); Calcium 9.6 mg/dl (8.4-10.2); Carbon Dioxide 30 mmol/L (22.0-30.0); Chloride 103 mmol/L (98-107); Estimated Glomerular Filt Rate 62 ml/min (>60); GFR (African American) 75 ML/MIN (>60); Globulin 3.2 g/dL (1.3-3.2); Glucose 99 mg/dl (74-100); Potassium 4.1 mmoL/L (3.5-5.1); Sodium 136 mmol/L (136-145); Total Protein,Serum 7.4 g/dl (6.3-8.2)
[2024-06-01 17:10] LABS: C-Reactive Protein 7.5 mg/L (0-4)
[2024-06-01 17:11] LABS: Erythrocyte Sedimentation Rate 22 mm/hr (0-20)
[2024-06-01 17:22] LABS: 25-OH Vitamin D, Total 18.6 ng/mL (30-100)
[2024-06-01 17:55] LABS: Vitamin B12 285 pg/mL (239-931)
== END 2024-06-01 23:59 | disposition home or self-care (01) ==
LOC: RAD 16:02
PROVIDERS: PCP Nurse Practitioner Family; Visit Provider Physician Assistant
DX: J20.9 Acute bronchitis, unspecified (principal); R52 Pain, unspecified; R53.83 Other fatigue; J01.00 Acute maxillary sinusitis, unspecified
CPT/HCPCS: 36415; 71046; 80053; 82306; 82607; 83735; 85025; 85651; 86140